=== PATIENT | male | born 1955 | race Caucasian/White ===

== ENCOUNTER 2017-06-30 11:00 | Emergency (ER) | payer BC ==
--- NOTE | 2017-06-30 11:26 | ED ---
General Adult HPI - General Chief complaint: Chest Pain Stated complaint: Irregular Heartbeat Time Seen by Provider: 06/30/17 11:00 Source: patient, family, RN notes reviewed Mode of arrival: ambulatory Limitations: no limitations - History of Present Illness Initial comments: This is a 61-year-old male who presents emergency Department because he went to get a preoperative exam and an EKG showed that he was in A. fib for the first time in his life. Patient states he has no history of A. fib or heart disease patient denies diabetes hypertension or high cholesterol. Patient denies any smoking history. Patient states he's been asymptomatic. Patient denies any chest pain palpitations difficulty breathing or shortness of breath. Patient states he had no idea that he had A. fib. Patient states he has not had any fevers chills or cough recently. Patient denies any abdominal pain patient denies nausea vomiting diarrhea. Patient denies any back pain. Patient denies any headache patient denies numbness weakness. Patient denies any lightheadedness dizziness or near syncopal episode. - Related Data Home Medications Medication Instructions Recorded Confirmed Cyclobenzaprine [Flexeril] 5 - 10 mg PO TID PRN 06/30/17 06/30/17 Garlic 1 tab PO DAILY 06/30/17 06/30/17 HYDROcodone/IBUPROFEN 7.5-200 1 tab PO BID PRN 06/30/17 06/30/17 [Vicoprofen 7.5-200 mg] Hydrocortisone Suppository 25 mg RECTAL DAILY PRN 06/30/17 06/30/17 [Anusol-Hc] L.acidoph,Paracasei, B.lactis 1 cap PO DAILY 06/30/17 06/30/17 [Probiotic] Multivitamins, Thera [Multivitamin 1 tab PO DAILY 06/30/17 06/30/17 (formulary)] [place]-3 Fatty Acids/Fish Oil [Fish 1 cap PO DAILY 06/30/17 06/30/17 Oil 1,000 mg Softgel] Tamsulosin HCl [Flomax] 0.4 mg PO DAILY 06/30/17 06/30/17 hydrOXYzine HCL [Atarax] 10 mg PO TID PRN 06/30/17 06/30/17 Previous Rx's Medication Instructions Recorded Enoxaparin [Lovenox] 80 mg SQ Q12H #12 syringe 06/30/17 Allergies Allergy/AdvReac Type Severity Reaction Status Date / Time No Known Allergies Allergy Verified 06/30/17 11:52 Review of Systems ROS Statement: Those systems with pertinent positive or pertinent negative responses have been documented in the HPI. ROS Other: All systems not noted in ROS Statement are negative. Past Medical History Past Medical History: No Reported History Additional Past Medical History / Comment(s): Arthritis History of Any Multi-Drug Resistant Organisms: None Reported Past Surgical History: Appendectomy Additional Past Surgical History / Comment(s): Bicep Past Psychological History: No Psychological Hx Reported Smoking Status: Never smoker Past Alcohol Use History: None Reported Past Drug Use History: None Reported General Exam - General Exam Comments Initial Comments: GENERAL: Patient is well-developed and well-nourished. Patient is nontoxic and well- hydrated and is in mild distress. ENT: Neck is soft and supple. No significant lymphadenopathy is noted. Oropharynx is clear. Moist mucous membranes. Neck has full range of motion without eliciting any pain. EYES: The sclera were anicteric and conjunctiva were pink and moist. Extraocular movements were intact and pupils were equal round and reactive to light. Eyelids were unremarkable. PULMONARY: Unlabored respirations. Good breath sounds bilaterally. No audible rales rhonchi or wheezing was noted. CARDIOVASCULAR: Patient heart rate is irregular.. ABDOMEN: Soft and nontender with normal bowel sounds. No palpable organomegaly was noted. There is no palpable pulsatile mass. SKIN: Skin is clear with no lesions or rashes and otherwise unremarkable. NEUROLOGIC: Patient is alert and oriented x3. Cranial nerves II through XII are grossly intact. Motor and sensory are also intact. Normal speech, volume and content. Symmetrical smile. MUSCULOSKELETAL: Normal extremities with adequate strength and full range of motion. LYMPHATICS: No significant lymphadenopathy is noted PSYCHIATRIC: Normal psychiatric evaluation. Normal interpersonal interactions appears functionally intact in deals appropriately with others. No signs of depression. No signs of anxiety. No delusions. No hallucinations. Limitations: no limitations Course Vital Signs 06/30/17 06/30/17 11:05 12:19 Temperature 98.7 F Pulse Rate 78 84 Respiratory 16 16 Rate Blood Pressure 125/82 129/83 O2 Sat by Pulse 98 96 Oximetry Medical Decision Making - Medical Decision Making EKG shows atrial fibrillation at 60 bpm QRS is 84 QT interval 412 QTC is 438. Patient's EKG shows no ST segment elevation or depression I spoke with Dr. Eileen Arellano wanted Lovenox given to the patient is sent home on Lovenox. - Lab Data Result diagrams: 06/30/17 11:31 06/30/17 11:31 Lab Results 06/30/17 06/30/17 06/30/17 Range/Units 11:31 11:31 11:31 WBC 6.2 (3.8-10.6) k/uL RBC 5.40 (4.30-5.90) m/uL Hgb 16.6 (13.0-17.5) gm/dL Hct 50.9 (39.0-53.0) % MCV 94.1 (80.0-100.0) fL MCH 30.8 (25.0-35.0) pg MCHC 32.7 (31.0-37.0) g/dL RDW 12.6 (11.5-15.5) % Plt Count 196 (150-450) k/uL Neutrophils % 67 % Lymphocytes % 23 % Monocytes % 6 % Eosinophils % 2 % Basophils % 1 % Neutrophils # 4.1 (1.3-7.7) k/uL Lymphocytes # 1.4 (1.0-4.8) k/uL Monocytes # 0.4 (0-1.0) k/uL Eosinophils # 0.1 (0-0.7) k/uL Basophils # 0.1 (0-0.2) k/uL PT (9.0-12.0) sec INR (<1.2) APTT (22.0-30.0) sec Sodium 142 (137-145) mmol/L Potassium 4.8 (3.5-5.1) mmol/L Chloride 108 H (98-107) mmol/L Carbon Dioxide 24 (22-30) mmol/L Anion Gap 10 mmol/L BUN 15 (9-20) mg/dL Creatinine 1.19 (0.66-1.25) mg/dL Est GFR (MDRD) Af Amer >60 (>60 ml/min/1.73 sqM) Est GFR (MDRD) Non-Af >60 (>60 ml/min/1.73 sqM) Glucose 97 (74-99) mg/dL Calcium 9.7 (8.4-10.2) mg/dL Magnesium 2.1 (1.6-2.3) mg/dL Total Bilirubin 0.8 (0.2-1.3) mg/dL AST 26 (17-59) U/L ALT 33 (21-72) U/L Alkaline Phosphatase 78 (38-126) U/L Total Creatine Kinase 179 H (55-170) U/L CK-MB (CK-2) 2.0 (0.0-2.4) ng/mL CK-MB (CK-2) Rel Index 1.1 Troponin I <0.012 (0.000-0.034) ng/mL Total Protein 6.7 (6.3-8.2) g/dL Albumin 4.2 (3.5-5.0) g/dL 06/30/17 Range/Units 11:31 WBC (3.8-10.6) k/uL RBC (4.30-5.90) m/uL Hgb (13.0-17.5) gm/dL Hct (39.0-53.0) % MCV (80.0-100.0) fL MCH (25.0-35.0) pg MCHC (31.0-37.0) g/dL RDW (11.5-15.5) % Plt Count (150-450) k/uL Neutrophils % % Lymphocytes % % Monocytes % % Eosinophils % % Basophils % % Neutrophils # (1.3-7.7) k/uL Lymphocytes # (1.0-4.8) k/uL Monocytes # (0-1.0) k/uL Eosinophils # (0-0.7) k/uL Basophils # (0-0.2) k/uL PT 10.5 (9.0-12.0) sec INR 1.1 (<1.2) APTT 22.7 (22.0-30.0) sec Sodium (137-145) mmol/L Potassium (3.5-5.1) mmol/L Chloride (98-107) mmol/L Carbon Dioxide (22-30) mmol/L Anion Gap mmol/L BUN (9-20) mg/dL Creatinine (0.66-1.25) mg/dL Est GFR (MDRD) Af Amer (>60 ml/min/1.73 sqM) Est GFR (MDRD) Non-Af (>60 ml/min/1.73 sqM) Glucose (74-99) mg/dL Calcium (8.4-10.2) mg/dL Magnesium (1.6-2.3) mg/dL Total Bilirubin (0.2-1.3) mg/dL AST (17-59) U/L ALT (21-72) U/L Alkaline Phosphatase (38-126) U/L Total Creatine Kinase (55-170) U/L CK-MB (CK-2) (0.0-2.4) ng/mL CK-MB (CK-2) Rel Index Troponin I (0.000-0.034) ng/mL Total Protein (6.3-8.2) g/dL Albumin (3.5-5.0) g/dL Disposition Clinical Impression: New onset a-fib Disposition: HOME SELF-CARE Condition: Good Additional Instructions: Patient's take Lovenox as prescribed. Patient should take the morning dose of Lovenox on and stop after that for the surgery on Monday Prescriptions: Enoxaparin [Lovenox] 80 mg SQ Q12H #12 syringe Referrals: Blas Borges MD [Primary Care Provider] - 1-2 days Time of Disposition: 13:03
[2017-06-30 11:44] LABS: Basophils # (A) 0.1 k/uL (0-0.2); Basophils % (A) 1 %; Eosinophils # (A) 0.1 k/uL (0-0.7); Eosinophils % (A) 2 %; HCT 50.9 % (39.0-53.0); HGB 16.6 gm/dL (13.0-17.5); Lymphocytes # (A) 1.4 k/uL (1.0-4.8); Lymphocytes % (A) 23 %; MCH 30.8 pg (25.0-35.0); MCHC 32.7 g/dL (31.0-37.0); MCV 94.1 fL (80.0-100.0); Mean Platelet Volume 6.9; Monocytes # (A) 0.4 k/uL (0-1.0); Monocytes % (A) 6 %; Neutrophils # (A) 4.1 k/uL (1.3-7.7); Neutrophils % (A) 67 %; Platelet Count 196 k/uL (150-450); RDW 12.6 % (11.5-15.5); WBC 6.2 k/uL (3.8-10.6)
[2017-06-30 11:58] LABS: ALT 33 U/L (21-72); AST 26 U/L (17-59); Albumin 4.2 g/dL (3.5-5.0); Alkaline Phosphatase 78 U/L (38-126); Anion Gap 10 mmol/L; Blood Urea Nitrogen 15 mg/dL (9-20); Calcium 9.7 mg/dL (8.4-10.2); Carbon Dioxide 24 mmol/L (22-30); Chloride 108 mmol/L (98-107); Glucose 97 mg/dL (74-99); Magnesium 2.1 mg/dL (1.6-2.3); Potassium 4.8 mmol/L (3.5-5.1); Sodium 142 mmol/L (137-145); Total Bilirubin 0.8 mg/dL (0.2-1.3); Total Protein 6.7 g/dL (6.3-8.2)
--- NOTE | 2017-06-30 12:00 | XR ---
EXAMINATION TYPE: XR chest 2V DATE OF EXAM: 06/30/2017 COMPARISON: NONE HISTORY: Cardiac arrhythmia and chest pain. TECHNIQUE: Frontal and lateral views of the chest are obtained. FINDINGS: There is no focal air space opacity, pleural effusion, or pneumothorax seen. The cardiac silhouette size is within normal limits. The osseous structures are intact. Minimal multilevel dege nerative changes of the thoracic spine are noted. IMPRESSION: No acute cardiopulmonary process.
[2017-06-30 12:02] LABS: INR 1.1 (<1.2); Partial Thromboplastin Time 22.7 sec (22.0-30.0); Prothrombin Time 10.5 sec (9.0-12.0)
[2017-06-30 12:15] LABS: Creatine Kinase 179 U/L (55-170)
[2017-06-30 12:28] LABS: Troponin I <0.012 ng/mL (0.000-0.034)
[2017-06-30] MEDS ORDERED: ENOXAPARIN 80 MG/0.8 ML SYRINGE SQ STA (13:02)
[2017-06-30 13:47] VITALS: BP 131/78; PULSE 86; RESP 18; TEMP 97.2
== END 2017-06-30 13:47 | disposition home or self-care (01) ==
LOC: EC 11:00
DX: I48.91 Unspecified atrial fibrillation (principal); Z79.899 Other long term (current) drug therapy
CPT/HCPCS: 36415; 93005; 80053; 82550; 82553; 83735; 84484; 85025; 85610; 85730; 71046; 99285; 96372; J1650

== ENCOUNTER → 2017-09-30 | Outpatient (CLI) | payer BC ==
[2017-09-30 10:49] LABS: HCT 42.8 % (39.0-53.0); HGB 14.5 gm/dL (13.0-17.5); MCH 31.2 pg (25.0-35.0); MCHC 33.8 g/dL (31.0-37.0); MCV 92.3 fL (80.0-100.0); Mean Platelet Volume 7.6; Platelet Count 218 k/uL (150-450); RBC 4.64 m/uL (4.30-5.90); RDW 13.1 % (11.5-15.5); WBC 5.5 k/uL (3.8-10.6)
[2017-09-30 10:58] LABS: Anion Gap 12 mmol/L; Blood Urea Nitrogen 20 mg/dL (9-20); Calcium 9.5 mg/dL (8.4-10.2); Carbon Dioxide 24 mmol/L (22-30); Chloride 107 mmol/L (98-107); Glucose 142 mg/dL (74-99); Potassium 4.2 mmol/L (3.5-5.1); Sodium 143 mmol/L (137-145)
== END | disposition home or self-care (01) ==
LOC: LABWHC1 10:02
PROVIDERS: ATTEND Internal Medicine Clinical Cardiac Electrophysiology
DX: I48.1 Persistent atrial fibrillation (principal)
CPT/HCPCS: 36415; 80048; 85027

== ENCOUNTER 2017-10-12 09:21 | Day surgery (SDC) | payer BC ==
[2017-10-09 14:48] VITALS: BMI 23.0
[~2017-10-12 09:21] MED LIST: LACTATED RINGERS 1,000 ML IV SCH; LIDOCAINE 1% 20 ML VIAL (10MG/ML) FOR IV START INTRADERMA PRN; SODIUM CHLORIDE 0.9% 1,000 ML IV SCH
[2017-10-12] MEDS ORDERED: PROPOFOL 10 MG/ML 20 ML VIAL IV ONE (10:30)
--- NOTE | 2017-10-12 10:42 | P.PCN ---
Preoperative Diagnosis: Diagnosis Symptomatic atrial fibrillation despite adequate rate control Procedure Successful electrical cardioversion with a 360 J biphasic shock Few PACs followed by sinus rhythm Plan Continue anticoagulation with ELIQUIS No antiarrhythmic drugs for now reevaluate symptoms of fatigue and tiredness while in sinus rhythm, If he shows a distinct improvement in his energy level and excess capacity while in sinus rhythm then antiarrhythmic therapies will be pursued for management of atrial fibrillation He also needs reassessment of LV function while in sinus rhythm to see if there is any improvement in LV function Anesthesia: MAC Disposition: same day
[2017-10-12 10:52] VITALS: TEMP 97.4
--- NOTE | 2017-10-12 10:54 | P.PN ---
Progress Note - Text Follow-up note Within 5 minutes post cardioversion. Patient had a recurrence of atrial fibrillation Plan Pulmonary vein isolation Reassessment of LV function Avoid class I antiarrhythmic drugs Avoid amiodarone CMP, TSH, lipid panel with reflex LDL
[2017-10-12 12:10] VITALS: BP 121/72; PULSE 72; RESP 18
== END 2017-10-12 12:12 | disposition home or self-care (01) ==
LOC: CATHEP 09:21
PROVIDERS: ATTEND Internal Medicine Clinical Cardiac Electrophysiology
DX: I48.1 Persistent atrial fibrillation (principal); E78.5 Hyperlipidemia, unspecified; N40.0 Benign prostatic hyperplasia without lower urinary tract symptoms; M19.90 Unspecified osteoarthritis, unspecified site; I45.10 Unspecified right bundle-branch block; Z87.891 Personal history of nicotine dependence; Z79.01 Long term (current) use of anticoagulants; Z79.899 Other long term (current) drug therapy
CPT/HCPCS: 92960; J2704

== ENCOUNTER 2017-12-21 11:51 | Day surgery (SDC) | payer BC ==
[2017-12-15 16:18] VITALS: BMI 24.4
[2017-12-21 12:47] LABS: Basophils % (A) 1 %; Eosinophils # (A) 0.1 k/uL (0-0.7); Eosinophils % (A) 3 %; HCT 46.6 % (39.0-53.0); HGB 15.6 gm/dL (13.0-17.5); Lymphocytes # (A) 1.1 k/uL (1.0-4.8); Lymphocytes % (A) 22 %; MCH 31.3 pg (25.0-35.0); MCHC 33.4 g/dL (31.0-37.0); MCV 93.7 fL (80.0-100.0); Mean Platelet Volume 6.7; Monocytes # (A) 0.3 k/uL (0-1.0); Monocytes % (A) 6 %; Neutrophils # (A) 3.5 k/uL (1.3-7.7); Neutrophils % (A) 67 %; Platelet Count 219 k/uL (150-450); RBC 4.98 m/uL (4.30-5.90); WBC 5.3 k/uL (3.8-10.6)
[2017-12-21 13:06] LABS: Anion Gap 6 mmol/L; Blood Urea Nitrogen 18 mg/dL (9-20); Calcium 9.4 mg/dL (8.4-10.2); Carbon Dioxide 23 mmol/L (22-30); Chloride 111 mmol/L (98-107); Glucose 101 mg/dL (74-99); Potassium 4.3 mmol/L (3.5-5.1); Sodium 140 mmol/L (137-145)
[2017-12-21] MEDS ORDERED: ePHEDrine SULFATE/0.9% NACL/PF 50 MG/5 ML SYRINGE IV ONE (13:22)
[2017-12-21] MEDS ORDERED: PROTAMINE SULFATE 10 MG/ML 5 ML VIAL IV ONE (13:22)
[2017-12-21] MEDS ORDERED: PROPOFOL 10 MG/ML 20 ML VIAL IV ONE (13:22)
[2017-12-21] MEDS ORDERED: HEPARIN SODIUM,PORCINE 5,000 UNIT/ML 1 ML VIAL ONE (13:22)
[2017-12-21] MEDS ORDERED: LIDOCAINE 1% INJ 10MG/ML (20 ML MDV) ONE ×2 (13:22→13:35)
[2017-12-21] MEDS ORDERED: MIDAZOLAM 2 MG/2 ML VIAL ONE (13:22)
[2017-12-21] MEDS ORDERED: SUCCINYLCHOLINE CHLORIDE 100 MG/5 ML SYR IV ONE (13:22)
[2017-12-21] MEDS ORDERED: PHENYLEPHRINE-0.9% NACL SYG 1 MG/10 ML SYRINGE ONE (13:22)
[2017-12-21] MEDS ORDERED: fentaNYL (PF) 50 MCG/ML 2 ML AMP ONE (13:22)
[2017-12-21] MEDS ORDERED: IV FLUID CONTINUATION 1,000 ML IV ONE (13:38)
[2017-12-21] MEDS ORDERED: HEPARIN SODIUM 1,000 UN/ML (10ML VL) ONE (13:41)
[2017-12-21] MEDS ORDERED: LIDOCAINE 1% INJ 10MG/ML (20 ML MDV) SQ ONE (14:00)
[2017-12-21] MEDS ORDERED: HEPARIN SOD,PORK IN 0.45% NACL 25,000 UNIT in 0.45% NACL 1 500ML.BAG IV ONE ×2 (14:21)
[2017-12-21] MEDS ORDERED: SODIUM CHLORIDE 0.9% 1,000 ML IV ONE (14:58)
[2017-12-21] MEDS ORDERED: IOPAMIDOL-370 100ML BTL INJ ONE (16:21)
[2017-12-21] MEDS ORDERED: ACETAMINOPHEN TAB 325 MG TAB PO PRN (16:46)
[2017-12-21] MEDS ORDERED: ACETAMINOPHEN IV (For NPO) 1,000 MG in EMPTY BAG 1 BAG IVPB ONE (16:46)
--- NOTE | 2017-12-21 16:59 | P.PCN ---
Preoperative Diagnosis: Diagnosis Atrial fibrillation, symptomatic, Atrial fibrillation related mild cardio myopathy Procedures performed (PVI - CRYO Ablation) Invasive hemodynamic monitoring while general anesthesia, right femoral arterial line for monitoring and sampling Comprehensive diagnostic EP study with attempted arrhythmia induction CS pacing and recording Drug infusion Catheter the mapping of the tachycardia (NOT 3D mapping) Intracardiac echocardiography Pulmonary vein isolation with transseptal and comprehensive EPS, 42231 Electrical cardioversion Procedure details Patient was brought to the EP lab in a fasting state. Written informed consent was obtained prior to the procedure. Procedure performed under general anesthesia After initial muscle relaxant use, muscle relaxants were not given thereafter in order to assess phrenic nerve during procedure Patient prepped and draped as per protocol Full cryo-set up with standard preparation of the cryoablation tools done Femoral Venous access obtained on the right and left groins Sheaths placed Diagnostic catheters for the high right atrium, phrenic nerve stimulation and pacing, His bundle, RV and coronary sinus placed Intracardiac echo catheter placed Long sheath placed in the right atrium Left and right transseptal catheterization performed under intracardiac echo guidance Intravenous heparin with aCT above 300 Later, catheter positioning and balloon positioning under intracardiac echo Baseline measurements Patient was in atrial fibrillation. Study Post cardioversion AR interval 160 ms QRS 84 ms, QT 393 ms AH 44 ms HV 33 ms Comprehensive diagnostic EP study with drug infusion Atrial pacing performed from the high right atrium and the coronary sinus RV pacing Sinus recovery times at 600 540 ms were 937, 96 and 1004 ms. AV node Wenckebach block for 60 ms Transseptal catheterization performed RA pressure 13/5/10 LA pressure 19/80/12 Transseptal catheterization performed with standard sheath. The cryoablation sheath was then placed with an over the wire exchange without any acute complications. All 4 pulmonary veins were isolated in the following sequence: Left superior followed by left inferior followed by right superior followed by right inferior The cryo-ablation balloon was placed at the os of each vein 1.5 mL of IV dye was injected to confirm an occluded vein Goal during cryoablation was to achieve complete occlusion of the pulmonary vein , achieve -30C at 30 seconds and achieve -40C at 60 seconds and a time to affect of less than 60-90 seconds, . If not the balloon was repositioned to obtain this result After completion of Cryoblation with durations from 180-240 seconds, entrance block was confirmed with the Attain circular catheter in a roving fashion around the antrum of the pulmonary veins Phrenic nerve pacing was performed from the SVC, right innominate vein area and diaphragm voltage was monitored. Diaphragmatic contractions were also monitored manually for strength of contraction. Parameter goals for each cryo freeze -30C by 30 seconds -40C by 60 seconds Mediated between minus 40-55 Thaw time greater than 10 seconds Balloon visualized by intracardiac echo to ensure that the proximal one third was within the left atrium/antrum The esophagus was intubated. Esophageal Temperature monitoring with a CIRCA catheter formed. Esophageal deflection for hypothermia of the esophagus below 32C Left superior pulmonary vein 2 Cryoblation's 3 minutes each complete isolation Left inferior pulmonary vein 2 Cryoblation's 3 minutes followed by 2 minutes, complete isolation Right superior pulmonary vein, during phrenic nerve pacing 2 Cryoblation's 3 minutes each, complete isolation Right inferior pulmonary vein, during phrenic nerve pacing 2 Cryoblations 3 minutes each complete isolation At the end of the procedure the Achieve catheter was once again used to check for entrance block Phrenic nerve stimulation was performed to confirm diaphragmatic stimulation the end of the procedure Cine fluoroscopy was performed at the very end of the procedure to confirm movement of both diaphragms with inspiration and expiration At the end of the procedure the patient was extubated Heparin was reversed Venous sheaths were removed and hemostasis assured Result Successful pulmonary vein isolation of all veins using cryo-ablation Complete entrance block in all 4 veins confirmed No evidence for phrenic nerve injury Electrical cardioversion 360 J shock sinus rhythm Esophageal deflection performed Anesthesia: GETA Condition: stable
[2017-12-21] MEDS ORDERED: ALPRAZolam 0.25 MG TAB PO PRN (19:50)
[2017-12-21] MEDS: HYDROcodone/APAP 5-325MG 1 EACH TAB PO PRN (19:55)
[2017-12-21] MEDS: FLECAINIDE 50 MG TAB PO SCH (19:56)
[2017-12-21] MEDS: APIXABAN 5 MG TAB PO SCH (19:56)
[2017-12-21] MEDS: SODIUM CHLORIDE 0.9% 1,000 ML IV SCH (23:14)
[2017-12-22] VITALS: RESP 18
[2017-12-22] MEDS: HYDROcodone/APAP 5-325MG 1 EACH TAB PO PRN ×3 (03:19→10:41)
[2017-12-22] MEDS: SODIUM CHLORIDE 0.9% 1,000 ML IV SCH (05:58)
--- NOTE | 2017-12-22 08:01 | P.DS ---
Providers Attending physician: Stanton Galvin Primary care physician: [facility] [place] Course: Patient is doing well. No dizziness lightheadedness he has mild discomfort in the chest sitting comfortably in bed eating breakfast heart sounds are normal normal S1 normal S2 no rub no gallop Breath sounds are clear no rhonchi no crackles abdomen is soft nontender Extended is warm no edema groin is healed well no hematoma no tenderness Afebrile 98.3F pulse rate in the 80s blood pressure 123/74 mmHg Impression Persistent symptomatic atrial fibrillation with history of atrial fibrillation related cardio myopathy Status post cryoablation of the pulmonary veins Plan Continue anticoagulation start flecainide 50 g twice daily. Intracardiac echo revealed fairly preserved LV systolic function now continue metoprolol succinate 25 mg twice daily follow-up within 1-2 weeks in the office Complete abstinence from alcohol discussed Patient Condition at Discharge: Stable Plan - Discharge Summary Discharge Rx Participant: No New Discharge Prescriptions: New Metoprolol Succinate [Toprol XL] 25 mg PO DAILY #90 tab No Action hydrOXYzine HCL [Atarax] 10 mg PO TID PRN PRN Reason: Itching Cyclobenzaprine [Flexeril] 5 - 10 mg PO TID PRN PRN Reason: Pain Apixaban [Eliquis] 5 mg PO BID HYDROcodone/APAP 7.5-325MG [[place] 7.5-325] 1 tab PO DAILY PRN PRN Reason: Pain Multivit-Min/FA/Lycopen/Lutein [Centrum Silver Men Tablet] 1 each PO DAILY Garlic 1 each PO DAILY Discharge Medication List Cyclobenzaprine [Flexeril] 5 - 10 mg PO TID PRN 06/30/17 [History] hydrOXYzine HCL [Atarax] 10 mg PO TID PRN 06/30/17 [History] Apixaban [Eliquis] 5 mg PO BID 10/12/17 [History] HYDROcodone/APAP 7.5-325MG [[place] 7.5-325] 1 tab PO DAILY PRN 12/15/17 [History] Garlic 1 each PO DAILY 12/18/17 [History] Multivit-Min/FA/Lycopen/Lutein [Centrum Silver Men Tablet] 1 each PO DAILY 12/18 [History] Metoprolol Succinate [Toprol XL] 25 mg PO DAILY #90 tab 07/27/18 [Rx] Follow up Appointment(s)/Referral(s): Stanton Galvin MD [STAFF PHYSICIAN] - 2 Weeks (Follow Dr. Duarte in 1-2 week) Activity/Diet/Wound Care/Special Instructions: Post EP study - Ablation instructions 1. Keep access sites dry for 2 days. 2. No heavy lifting or straining for 2 days. 3. Avoid bending the hips repeatedly for 2 days. 4. You may go up and down stairs slowly Call if the following is noted 1. Bleeding, increasing swelling or pain at the access sites. 2. Increasing chest discomfort, especially upon taking a deep breath. 3. Increasing shortness of breath, at rest or with exertion. 4. Undue cough / phlegm 5. Difficulty or pain while swallowing. 6. Pain or change in color in the extremities. 7. Fever, chills, rigors. 8. Increasing headache or neurologic symptoms. 9. Dizziness, fainting, palpitations Continue ELIQUIS Start flecainide 50 mg twice daily Discharge Disposition: HOME SELF-CARE
[2017-12-22] MEDS: APIXABAN 5 MG TAB PO SCH (09:59)
[2017-12-22] MEDS: FLECAINIDE 50 MG TAB PO SCH (09:59)
[2017-12-22 12:07] VITALS: BP 107/71; PULSE 89; TEMP 98.8
== END 2017-12-22 16:37 | disposition home or self-care (01) ==
LOC: CATHEP 11:51 → 3OBS 16:13 → CATHEP 12-22 16:37
PROVIDERS: ATTEND Internal Medicine Clinical Cardiac Electrophysiology
DX: I48.1 Persistent atrial fibrillation (principal); I42.0 Dilated cardiomyopathy; Z79.01 Long term (current) use of anticoagulants; Z79.891 Long term (current) use of opiate analgesic; Z79.899 Other long term (current) drug therapy; M19.012 Primary osteoarthritis, left shoulder; E78.5 Hyperlipidemia, unspecified
CPT/HCPCS: 85347; 93662; 93609; 93656; 80048; 85025; C1769 ×5; C1894 ×3; C1730 ×3; C1759; C1893; C1733; C1766; J2250; J2720; J1644 ×2; J2001; J3010; J2370; J0330; J2704; Q9967; 92960

== ENCOUNTER 2018-02-09 14:05 | Inpatient (IN) | payer BC ==
[2018-02-09 14:34] VITALS: BMI 25.1
[2018-02-09 15:31] LABS: Anion Gap 7 mmol/L; Blood Urea Nitrogen 22 mg/dL (9-20); Calcium 9.1 mg/dL (8.4-10.2); Carbon Dioxide 25 mmol/L (22-30); Chloride 107 mmol/L (98-107); Glucose 90 mg/dL (74-99); Magnesium 2.2 mg/dL (1.6-2.3); Potassium 4.4 mmol/L (3.5-5.1); Sodium 139 mmol/L (137-145)
[2018-02-09] MEDS ORDERED: CYCLOBENZAPRINE 5 MG TAB PO PRN (16:02)
[2018-02-09] MEDS ORDERED: hydrOXYzine HCL 10 MG TAB PO PRN (16:03)
[2018-02-09] MEDS ORDERED: MAGNESIUM SULFATE-D5W PMX 1 GM in DEXTROSE/WATER 1 100ML.BAG IVPB PRN (17:30)
[2018-02-09] MEDS ORDERED: DOFETILIDE 500 MCG CAP PO ONE (18:00)
[2018-02-09 20:13] LABS: Basophils % (A) 1 %; Eosinophils # (A) 0.1 k/uL (0-0.7); Eosinophils % (A) 3 %; HCT 42.9 % (39.0-53.0); HGB 13.9 gm/dL (13.0-17.5); Lymphocytes # (A) 1.4 k/uL (1.0-4.8); Lymphocytes % (A) 30 %; MCH 31.1 pg (25.0-35.0); MCHC 32.4 g/dL (31.0-37.0); MCV 95.8 fL (80.0-100.0); Mean Platelet Volume 7.8; Monocytes # (A) 0.3 k/uL (0-1.0); Monocytes % (A) 8 %; Neutrophils # (A) 2.6 k/uL (1.3-7.7); Neutrophils % (A) 57 %; Platelet Count 202 k/uL (150-450); RBC 4.48 m/uL (4.30-5.90); RDW 12.5 % (11.5-15.5); WBC 4.6 k/uL (3.8-10.6)
[2018-02-09] MEDS: APIXABAN 5 MG TAB PO SCH (21:18)
[2018-02-10] MEDS ORDERED: DOFETILIDE 500 MCG CAP PO ONE (06:00)
[2018-02-10 06:25] LABS: Anion Gap 5 mmol/L; Blood Urea Nitrogen 18 mg/dL (9-20); Calcium 9.3 mg/dL (8.4-10.2); Carbon Dioxide 26 mmol/L (22-30); Chloride 107 mmol/L (98-107); Glucose 96 mg/dL (74-99); Magnesium 2.3 mg/dL (1.6-2.3); Potassium 4.8 mmol/L (3.5-5.1); Sodium 138 mmol/L (137-145)
[2018-02-10] MEDS: MAGNESIUM OXIDE 400 MG TAB PO SCH (08:29)
[2018-02-10] MEDS: APIXABAN 5 MG TAB PO SCH ×2 (08:29→20:53)
[2018-02-10] MEDS: HYDROcodone/APAP 7.5-325MG 1 EACH TAB PO PRN (08:34)
[2018-02-10] MEDS ORDERED: SPIRONOLACTONE 25 MG TAB PO SCH (09:00)
--- NOTE | 2018-02-10 11:37 | P.HPCAR ---
History of Present Illness This is Dr. Galvin dictating this admission note on this patient The patient was interviewed and examined by me IMPRESSION / ASSESSMENT: Symptomatic atrial fibrillation, persistent PLAN: Dofetilide 500 g twice daily Observation on telemetry and dofetilide protocol Continue anticoagulation Possible electrical cardioversion if he remains in atrial fibrillation after 5 doses of dofetilide Continue ELIQUIS Start spironolactone 20 femoral grams by mouth daily Start oral magnesium HPI Patient has persistent symptomatically atrial fibrillation feels tired and fatigued. Undergone pulmonary vein isolation. Back in atrial fibrillation within a few weeks of successful PVI No chest discomfort ROS: No fever chills or rigors, no cough, phlegm or expectoration, no nausea, vomiting or diarrhea, no hematuria, dysuria, no musculoskeletal complaints, no strokes or seizures, no skin lesions. EXAMINATION Irregular rhythm Heart sounds are normal no murmurs or gallops no rub Breath sounds are clear no rhonchi no crackles Abdomen is soft nontender Next 70s warm no edema No JVD Afebrile 97.3F, blood pressure 123/74 mm of Hg pulse rate in the 70s and 80s REVIEW OF LABS, ECG Sodium 139, potassium 4.4, BUN 22, creatinine 1.0, magnesium 2.2, TSH 1.2 Hemoglobin 13.9 Twelve-lead ECG shows atrial fibrillation with a controlled ventricular response Physical Exam Vitals: Vital Signs Temp Pulse Resp BP Pulse Ox 02/10/18 08:00 98.2 F 78 14 123/74 95 02/10/18 03:30 97.3 F L 76 18 98/64 96 02/09/18 23:00 98.0 F 76 18 114/80 94 L 02/09/18 19:50 98.1 F 84 16 111/76 94 L 02/09/18 16:23 98.2 F 94 16 124/82 96 Intake and Output 02/09/18 02/10/18 02/10/18 22:59 06:59 14:59 Intake Total 222 680 Balance 222 680 Intake: Oral 222 680 Other: Weight 82.1 kg Past Medical History Past Medical History: No Reported History, Atrial Fibrillation, Atrial Flutter Additional Past Medical History / Comment(s): . History of Any Multi-Drug Resistant Organisms: None Reported Past Surgical History: Appendectomy Additional Past Surgical History / Comment(s): Cardioversion,Bicep repair Past Anesthesia/Blood Transfusion Reactions: No Reported Reaction Past Psychological History: No Psychological Hx Reported Smoking Status: Former smoker Past Alcohol Use History: None Reported Past Drug Use History: None Reported - Past Family History Mother Family Medical History: No Reported History Father Family Medical History: Coronary Artery Disease (CAD) Physical Examination Vital Signs Temp Pulse Resp BP Pulse Ox 02/10/18 08:00 98.2 F 78 14 123/74 95 02/10/18 03:30 97.3 F L 76 18 98/64 96 02/09/18 23:00 98.0 F 76 18 114/80 94 L 02/09/18 19:50 98.1 F 84 16 111/76 94 L 02/09/18 16:23 98.2 F 94 16 124/82 96 Intake and Output 02/09/18 02/10/18 02/10/18 22:59 06:59 14:59 Intake Total 222 680 Balance 222 680 Intake: Oral 222 680 Other: Weight 82.1 kg Results 02/09/18 14:54 02/10/18 05:45 CBC 02/09/18 Range/Units 14:54 WBC 4.6 (3.8-10.6) k/uL RBC 4.48 (4.30-5.90) m/uL Hgb 13.9 (13.0-17.5) gm/dL Hct 42.9 (39.0-53.0) % Plt Count 202 (150-450) k/uL Comprehensive Metabolic Panel 02/09/18 02/10/18 Range/Units 14:54 05:45 Sodium 139 138 (137-145) mmol/L Potassium 4.4 4.8 (3.5-5.1) mmol/L Chloride 107 107 (98-107) mmol/L Carbon Dioxide 25 26 (22-30) mmol/L BUN 22 H 18 (9-20) mg/dL Creatinine 1.00 1.00 (0.66-1.25) mg/dL Glucose 90 96 (74-99) mg/dL Calcium 9.1 9.3 (8.4-10.2) mg/dL Current Medications Generic Name Dose Route Start Last Admin Trade Name Freq PRN Reason Stop Dose Admin Hydrocodone Bitart/Acetaminophen 1 each 02/09/18 16:01 02/10/18 08:34 [place] 7.5-325 PO 1 each Q8H PRN Administration Pain Apixaban 5 mg 02/09/18 21:00 02/10/18 08:29 Eliquis PO 5 mg BID MIRYAM Administration Cyclobenzaprine HCl 5 mg 02/09/18 16:02 Flexeril PO TID PRN Muscle Spasm Magnesium Sulfate/Dextrose 1 100 mls @ 400 mls/hr 02/09/18 17:30 gm/ IV Solution IVPB 03/11/18 17:31 Q15M PRN PER LABEL COMMENTS Magnesium Oxide 100 mg 02/10/18 09:00 02/10/18 08:29 Mag-Ox PO 100 mg DAILY MIRYAM Administration Spironolactone 25 mg 02/10/18 09:00 02/10/18 08:29 Aldactone PO 25 mg DAILY MIRYAM Administration Intake and Output 02/09/18 02/10/18 02/10/18 22:59 06:59 14:59 Intake Total 222 680 Balance 222 680 Intake: Oral 222 680 Other: Weight 82.1 kg 02/09/18 14:54 02/10/18 05:45
--- NOTE | 2018-02-10 11:39 | P.PN ---
Progress Note - Text After the second dose of dofetilide, patient converted to sinus rhythm. His baseline QT interval was normal and was around 400 ms In sinus rhythm his absolute QT interval is less than 440 ms Result Successful chemical cardioversion on dofetilide 500 g twice daily
[2018-02-10] MEDS: DOFETILIDE 500 MCG CAP PO SCH (18:06)
[2018-02-11] MEDS: DOFETILIDE 500 MCG CAP PO SCH ×2 (06:05→17:54)
[2018-02-11 06:59] LABS: Anion Gap 6 mmol/L; Blood Urea Nitrogen 23 mg/dL (9-20); Calcium 9.6 mg/dL (8.4-10.2); Carbon Dioxide 28 mmol/L (22-30); Chloride 108 mmol/L (98-107); Glucose 96 mg/dL (74-99); Magnesium 2.4 mg/dL (1.6-2.3); Potassium 5.2 mmol/L (3.5-5.1); Sodium 142 mmol/L (137-145)
[2018-02-11] MEDS: SPIRONOLACTONE 25 MG TAB PO SCH (08:41)
[2018-02-11] MEDS: APIXABAN 5 MG TAB PO SCH ×2 (08:41→21:08)
[2018-02-11] MEDS: HYDROcodone/APAP 7.5-325MG 1 EACH TAB PO PRN (08:46)
--- NOTE | 2018-02-11 09:50 | P.PN ---
Subjective Mr. Penny is seen and examined sitting up comfortably in bed in no acute distress. He denies symptoms of chest pain, shortness of breath, palpitations or dizziness. EKG obtained this morning reveals a QT interval 440 ms. He continues to maintain sinus mechanism. Blood pressure 111/77 heart rate 74 afebrile maintaining oxygen saturation on room air. Laboratory data reviewed, potassium 5.2, creatinine 0.9, magnesium 2.4. GENERAL: Well-appearing, well-nourished and in no acute distress. NECK: Supple without JVD or thyromegaly. LUNGS: Breath sounds clear to auscultation bilaterally. Respiration equal and unlabored. No wheezes, rales or rhonchi. HEART: Regular rate and rhythm without murmurs, rubs or gallops. S1 and S2 heard. EXTREMITIES: Normal range of motion, no edema. No clubbing or cyanosis. Peripheral pulses intact. ASSESSMENT Persistent symptomatic atrial fibrillation status post successful cardioversion with tikosyn Hyperkalemia PLAN Decrease aldactone to 12.5 PO daily. Discontinue magnesium supplementation. Continue tikosyn 500 mg BID. Advised him to increase PO intake of water for possible dehydration. Repeat EKG tonight 3 hours after administration of tikosyn and call Dr. Kamar thorpe per tikosyn protocol. BMP and magnesium level in am. Further recommendations to follow. Nurse Practitioner note has been reviewed, I agree with a documented findings and plan of care. Patient was seen and examined. Objective - Vital Signs Vital signs: Vital Signs Temp 96.8 F L 02/11/18 08:00 Pulse 74 02/11/18 08:00 Resp 16 02/11/18 08:00 BP 111/77 02/11/18 08:00 Pulse Ox 94 L 02/11/18 08:00 Intake & Output 02/10/18 02/11/18 02/11/18 18:59 06:59 18:59 Intake Total 1360 200 Balance 1360 200 Weight 82.3 kg Intake: Oral 1360 200 Other: # Voids 1 - Labs CBC & Chem 7: 02/09/18 14:54 02/11/18 06:24 Labs: Abnormal Lab Results - Last 24 Hours (Table) 02/11/18 Range/Units 06:24 Potassium 5.2 H (3.5-5.1) mmol/L Chloride 108 H (98-107) mmol/L BUN 23 H (9-20) mg/dL Magnesium 2.4 H (1.6-2.3) mg/dL
[2018-02-11] MEDS: MAGNESIUM OXIDE 400 MG TAB PO SCH (10:58)
[2018-02-11] MEDS ORDERED: ACETAMINOPHEN TAB 325 MG TAB PO PRN (18:14)
[2018-02-12] MEDS: DOFETILIDE 500 MCG CAP PO SCH ×2 (06:10→17:38)
[2018-02-12] MEDS: SPIRONOLACTONE 25 MG TAB PO SCH (08:37)
[2018-02-12] MEDS: APIXABAN 5 MG TAB PO SCH ×2 (08:37→21:32)
[2018-02-12] MEDS: HYDROcodone/APAP 7.5-325MG 1 EACH TAB PO PRN (08:40)
[2018-02-12] MEDS: SODIUM CHLORIDE 0.9% 1,000 ML IV SCH (09:18)
[2018-02-12 10:05] LABS: Anion Gap 7 mmol/L; Blood Urea Nitrogen 18 mg/dL (9-20); Calcium 9.3 mg/dL (8.4-10.2); Carbon Dioxide 26 mmol/L (22-30); Chloride 107 mmol/L (98-107); Glucose 95 mg/dL (74-99); Magnesium 2.3 mg/dL (1.6-2.3); Potassium 4.9 mmol/L (3.5-5.1); Sodium 140 mmol/L (137-145)
[2018-02-13 05:59] LABS: Anion Gap 5 mmol/L; Blood Urea Nitrogen 24 mg/dL (9-20); Calcium 9.6 mg/dL (8.4-10.2); Carbon Dioxide 27 mmol/L (22-30); Chloride 107 mmol/L (98-107); Glucose 95 mg/dL (74-99); Magnesium 2.2 mg/dL (1.6-2.3); Potassium 4.5 mmol/L (3.5-5.1); Sodium 139 mmol/L (137-145)
[2018-02-13] MEDS: SPIRONOLACTONE 25 MG TAB PO SCH (06:02)
[2018-02-13] MEDS: APIXABAN 5 MG TAB PO SCH ×2 (06:02→20:12)
[2018-02-13] MEDS: DOFETILIDE 500 MCG CAP PO SCH ×2 (06:02→18:51)
[2018-02-13] MEDS ORDERED: PROPOFOL 10 MG/ML 20 ML VIAL IV ONE (07:29)
[2018-02-13] MEDS ORDERED: fentaNYL (PF) 50 MCG/ML 2 ML AMP ONE (07:29)
[2018-02-13] MEDS ORDERED: NEOSTIGMINE 1 MG/ML 10 ML VIAL ONE (07:29)
[2018-02-13] MEDS ORDERED: SUCCINYLCHOLINE CHLORIDE 100 MG/5 ML SYR IV ONE (07:29)
[2018-02-13] MEDS ORDERED: PHENYLEPHRINE-0.9% NACL SYG 1 MG/10 ML SYRINGE ONE (07:29)
[2018-02-13] MEDS ORDERED: ePHEDrine SULFATE/0.9% NACL/PF 50 MG/5 ML SYRINGE IV ONE (07:29)
[2018-02-13] MEDS ORDERED: IV FLUID CONTINUATION 1,000 ML IV ONE (07:29)
[2018-02-13] MEDS ORDERED: MIDAZOLAM 2 MG/2 ML VIAL ONE (07:29)
[2018-02-13] MEDS ORDERED: GLYCOPYRROLATE 0.2 MG/ML 2 ML VIAL ONE (07:29)
[2018-02-13] MEDS ORDERED: ROCURONIUM BROMIDE 10 MG/ML 10 ML VIAL IV ONE (07:29)
[2018-02-13] MEDS ORDERED: LIDOCAINE 2% INJ 20 MG/ML SQ ONE ×2 (08:18→08:20)
[2018-02-13] MEDS ORDERED: ACETAMINOPHEN TAB 325 MG TAB PO PRN (09:37)
[2018-02-13] MEDS ORDERED: HEPARIN SODIUM (1,000 UNIT/ML) 1,000 UNIT in SODIUM CHLORIDE 0.9% 1,000 ML IRRIGATION ONE (09:39)
--- NOTE | 2018-02-13 10:16 | PCN ---
PROCEDURE NOTE Mr. Louie is a 62-year-old male patient who was brought in for management of atrial fibrillation. He was started on dofetilide 500 mcg twice daily, converted to sinus rhythm after the second dose. However, after the fifth dose, he went into atrial flutter, typical. Today he was brought in for an atrial flutter ablation, drug refractory to in a different light. He is on anticoagulation. His QT interval was normal. Next, patient brought to the EP lab in a fasting semi-sedated state. Written informed consent was obtained prior to the procedure. Both groins are prepped and draped as per protocol. Two venous sheaths in the right femoral vein and one venous sheath in the left femoral vein and diagnostic catheters mapping ablation catheter were placed. The coronary sinus was mapped. Intracardiac echo revealed normal LV size and systolic function. He was in atrial tachycardia with concentric activation, cycle length 230 milliseconds, QRS 95 milliseconds QT 433 milliseconds. Later in sinus rhythm was AH interval was 65 milliseconds, HV interval 35 milliseconds. In sinus rhythm, cycle sinus cycle length was 750 milliseconds. The OK interval 135 milliseconds. Sinus node recovery time was 6 minutes at a pace cycle length of 600 milliseconds was 1136 milliseconds. Corresponding corrected sinus node recovery time was normal. AV node Wenckebach block 550 milliseconds, VA Wenckebach block 390 milliseconds. Entrainment mapping was performed. The patient was in tachycardia and the post pacing interval was 256 milliseconds and tachycardia was entrained from the cava tricuspid isthmus on the right side. RF ablation in the area resulted in termination of the tachycardia. Following that, a complete line of block was made. An RF ablation was performed. Good contact force and good power was used. A complete anatomic line of block was made. A split potentials of 95 milliseconds were noted differential pacing revealed bidirectional block. Patient tolerated the procedure well without any acute complications. Burst stimulation from the coronary sinus os once he was in sinus rhythm, did not induce atrial flutter nor did it induce any atrial fibrillation. RESULTS: Successful mapping and ablation for atypical atrial flutter, which is drug refractory. PLAN: Continue dofetilide. Continue apixaban and continue Slow-Mag and low-dose spironolactone. Likely discharge tomorrow and follow up in the office. MMODL / IJN: [id number] /
[2018-02-13] MEDS: ACETAMINOPHEN IV (For NPO) 1,000 MG in EMPTY BAG 1 BAG IVPB ONE ×2 (10:42→10:57)
[2018-02-13] MEDS ORDERED: HYDROmorphone 1 MG/ML 1 ML SYRINGE IVP ONE (10:59)
[2018-02-13] MEDS: SODIUM CHLORIDE 0.9% 1,000 ML IV SCH (12:19)
[2018-02-13] MEDS: HYDROcodone/APAP 5-325MG 1 EACH TAB PO PRN ×2 (12:52→20:12)
[2018-02-14] MEDS: HYDROcodone/APAP 5-325MG 1 EACH TAB PO PRN ×2 (01:24→06:10)
[2018-02-14] MEDS: DOFETILIDE 500 MCG CAP PO SCH ×2 (06:00→17:59)
[2018-02-14 07:43] LABS: Anion Gap 4 mmol/L; Blood Urea Nitrogen 21 mg/dL (9-20); Calcium 9.3 mg/dL (8.4-10.2); Carbon Dioxide 28 mmol/L (22-30); Chloride 107 mmol/L (98-107); Glucose 95 mg/dL (74-99); Magnesium 2.1 mg/dL (1.6-2.3); Potassium 4.7 mmol/L (3.5-5.1); Sodium 139 mmol/L (137-145)
[2018-02-14] MEDS: SPIRONOLACTONE 25 MG TAB PO SCH (09:15)
[2018-02-14] MEDS: SODIUM CHLORIDE 0.9% 1,000 ML IV SCH (09:16)
[2018-02-14] MEDS: APIXABAN 5 MG TAB PO SCH ×2 (09:16→20:55)
--- NOTE | 2018-02-14 12:44 | P.PN ---
Subjective Patient still has a headache. A bit nauseous but he was not given nausea medications because he is on Tikosyn Once of healed well. I removed sutures. No hematoma no bleeding Blood pressure 109/67 mmHg pulse rate in the 70s, afebrile 97.1F Breath sounds are clear no rhonchi no crackles Heart sounds are normal normal S1 normal S2 Extremities are warm no edema Twelve-lead ECG was reviewed and it shows QT interval absolute of less than 420 ms No ventricular arrhythmias Labs reviewed potassium 4.7 magnesium 2.1 BUN 21 creatinine 1.01 I had a very detailed discussion with his and the patient did a full dofetilide education was provided by me. Impression persistent atrial fibrillation, symptomatic Patient admitted for management of persistent atrial fibrillation and initiation of dofetilide as an inpatient After 2 doses of dofetilide converted to sinus rhythm. QT interval less than 440 ms consistently, no ventricular arrhythmias Later developed typical atrial flutter with RVR, symptomatic, on dofetilide Status post atrial flutter ablation yesterday Failed in sinus rhythm now Suggest I will hold his discharge today since he's been complaining of a headache that is persistent. He thinks it happens after anesthesia. I would treat her dofetilide 500 g twice daily along with Slow-Mag and low-dose spironolactone ELIQUIS 5 mg twice daily Suggest Discharge planning for tomorrow Objective - Vital Signs Vital signs: Vital Signs Temp 97.1 F L 02/14/18 08:00 Pulse 72 02/14/18 12:00 Resp 16 02/14/18 04:15 BP 109/67 02/14/18 12:00 Pulse Ox 97 02/14/18 12:00 Intake & Output 02/13/18 02/14/18 02/14/18 18:59 06:59 18:59 Intake Total 1179 370 240 Output Total 600 Balance 1179 370 -360 Weight 81.6 kg Intake: IV 1179 10 0.9 10 Oral 360 240 Output: Urine 600 Other: Voiding Method Toilet # Voids 1 2 # Bowel Movements 1 - Labs CBC & Chem 7: 02/09/18 14:54 02/14/18 07:01 Labs: Abnormal Lab Results - Last 24 Hours (Table) 02/14/18 Range/Units 07:01 BUN 21 H (9-20) mg/dL
[2018-02-15] MEDS: HYDROcodone/APAP 5-325MG 1 EACH TAB PO PRN (04:48)
[2018-02-15 05:40] VITALS: RESP 16
[2018-02-15] MEDS: DOFETILIDE 500 MCG CAP PO SCH (06:13)
[2018-02-15 07:40] LABS: Anion Gap 6 mmol/L; Blood Urea Nitrogen 16 mg/dL (9-20); Calcium 9.2 mg/dL (8.4-10.2); Carbon Dioxide 28 mmol/L (22-30); Chloride 106 mmol/L (98-107); Glucose 96 mg/dL (74-99); Magnesium 2.1 mg/dL (1.6-2.3); Potassium 4.4 mmol/L (3.5-5.1); Sodium 140 mmol/L (137-145)
[2018-02-15] MEDS: SPIRONOLACTONE 25 MG TAB PO SCH (08:44)
[2018-02-15] MEDS: APIXABAN 5 MG TAB PO SCH (08:44)
[2018-02-15] MEDS: SODIUM CHLORIDE 0.9% 1,000 ML IV SCH (08:45)
[2018-02-15 08:52] VITALS: BP 109/65; PULSE 76; TEMP 99
--- NOTE | 2018-02-15 10:01 | P.DS ---
Providers Date of admission: 02/09/18 14:05 Attending physician: Stanton Galvin Primary care physician: [facility] Course: Patient is doing well. No chest discomfort dizziness lightheadedness. His headache is much better today his vitals are stable Blood pressure 109/65 mmHg normal respirations pulse rate in the 60s and 70s 99 F Breath sounds are clear no rhonchi no crackles Heart sounds S1 and S2 are normal no murmurs or gallops no rub Abdomen soft nontender Extremities warm no edema Groin is healed well no hematoma Impression Symptomatic persistent atrial fibrillation Dofetilide initiation in the hospital Chemical conversion after the second dose of dofetilide 500 g QT interval consistently less than 440 ms Breakthrough atrial flutter, typical on dofetilide Successful atrial flutter ablation with bidirectional block and split potentials of 95-100 ms Plan Discharge home today on dofetilide 500 g twice daily, Aldactone 12.5 g by mouth daily and Slow-Mag Continue ELIQUIS Follow-up with Dr. Duarte in 2 weeks Patient Condition at Discharge: Stable Plan - Discharge Summary New Discharge Prescriptions: New Dofetilide [Tikosyn] 500 mcg PO Q12HR #180 cap Magnesium Chloride [Mag64] 64 mg PO DAILY #90 tablet. Spironolactone [Aldactone] 12.5 mg PO DAILY #90 tablet Discontinued Garlic 1 each PO DAILY [place]-3 Fatty Acids [[place]-3] 1,000 mg PO DAILY No Action hydrOXYzine HCL [Atarax] 10 mg PO TID PRN PRN Reason: Itching Cyclobenzaprine [Flexeril] 5 - 10 mg PO TID PRN PRN Reason: Pain Apixaban [Eliquis] 5 mg PO BID HYDROcodone/APAP 7.5-325MG [[place] 7.5-325] 1 tab PO Q8H PRN PRN Reason: Pain Multivit-Min/FA/Lycopen/Lutein [Centrum Silver Men Tablet] 1 tab PO DAILY Acetaminophen [Tylenol Extra Strength] 1,000 mg PO Q6H PRN PRN Reason: Pain Clindamycin Gel [Clindamycin Phosphate] 1 applic TOPICAL BID Discharge Medication List Cyclobenzaprine [Flexeril] 5 - 10 mg PO TID PRN 06/30/17 [History] hydrOXYzine HCL [Atarax] 10 mg PO TID PRN 06/30/17 [History] Apixaban [Eliquis] 5 mg PO BID 10/12/17 [History] HYDROcodone/APAP 7.5-325MG [[place] 7.5-325] 1 tab PO Q8H PRN 12/15/17 [History] Multivit-Min/FA/Lycopen/Lutein [Centrum Silver Men Tablet] 1 tab PO DAILY [History] Acetaminophen [Tylenol Extra Strength] 1,000 mg PO Q6H PRN 02/09/18 [History] Clindamycin Gel [Clindamycin Phosphate] 1 applic TOPICAL BID 02/09/18 [History] Dofetilide [Tikosyn] 500 mcg PO Q12HR #180 cap 02/14/18 [Rx] Magnesium Chloride [Mag64] 64 mg PO DAILY #90 tablet. 02/14/18 [Rx] Spironolactone [Aldactone] 12.5 mg PO DAILY #90 tablet 02/14/18 [Rx] Follow up Appointment(s)/Referral(s): Stanton Galvin MD [STAFF PHYSICIAN] - 02/21/18 2:15 pm Patient Instructions/Handouts: Dofetilide (By mouth), Atrial Flutter (DC), Cardiac Ablation (DC) Activity/Diet/Wound Care/Special Instructions: Dofetilide education provided by Dr. Duarte Discharge Disposition: HOME SELF-CARE
== END 2018-02-15 11:11 | disposition home or self-care (01) | DRG 274 ==
LOC: 6SEL 14:05
PROVIDERS: ADMIT Internal Medicine Clinical Cardiac Electrophysiology; ATTEND Internal Medicine Clinical Cardiac Electrophysiology
PROC: 02583ZZ Destruction of Conduction Mechanism, Percutaneous Approach (ICD-10-PCS; principal; 2018-02-09)
PROC: 02K83ZZ Map Conduction Mechanism, Percutaneous Approach (ICD-10-PCS; 2018-02-09)
PROC: 4A023FZ Measurement of Cardiac Rhythm, Percutaneous Approach (ICD-10-PCS; 2018-02-09)
PROC: 4A0234Z Measurement of Cardiac Electrical Activity, Percutaneous Approach (ICD-10-PCS; 2018-02-09)
PROC: 5A2204Z Restoration of Cardiac Rhythm, Single (ICD-10-PCS; 2018-02-09)
DX: I48.1 Persistent atrial fibrillation (principal); I48.3 Typical atrial flutter; E87.5 Hyperkalemia; Z79.01 Long term (current) use of anticoagulants; Z79.899 Other long term (current) drug therapy; Z87.891 Personal history of nicotine dependence; Z82.49 Family history of ischemic heart disease and other diseases of the circulatory system
CPT/HCPCS: 80048; 83735; 84443; 85025; 93613; 93653; 93662

== ENCOUNTER → 2018-03-31 | Outpatient (CLI) | payer BC ==
[2018-03-31 12:37] LABS: Basophils % (A) 0 %; Eosinophils # (A) 0.1 k/uL (0-0.7); Eosinophils % (A) 2 %; HCT 47.9 % (39.0-53.0); HGB 15.3 gm/dL (13.0-17.5); Lymphocytes # (A) 1.2 k/uL (1.0-4.8); Lymphocytes % (A) 18 %; MCH 30.9 pg (25.0-35.0); MCV 96.3 fL (80.0-100.0); Mean Platelet Volume 6.6; Monocytes # (A) 0.4 k/uL (0-1.0); Monocytes % (A) 6 %; Neutrophils # (A) 4.6 k/uL (1.3-7.7); Neutrophils % (A) 72 %; Platelet Count 220 k/uL (150-450); RBC 4.97 m/uL (4.30-5.90); RDW 12.6 % (11.5-15.5); WBC 6.4 k/uL (3.8-10.6)
[2018-03-31 22:50] LABS: Albumin 4.5 g/dL (3.80-4.90); Albumin/Globulin Ratio 2.5 (1.20-2.10); Anion Gap 3.9 mmol/L (4.00-12.00); Calcium 9.3 mg/dL (8.7-10.3); Carbon Dioxide 28.1 mmol/L (21.6-31.8); Globulin 1.8 g/dL (2.1-3.7); LDL Cholesterol,Calculated 121.6 mg/dL (0.0-131.0); Magnesium 2.2 mg/dL (1.5-2.4); Potassium 4.6 mmol/L (3.5-5.5); Total Bilirubin 0.6 mg/dL (0.3-1.2); Total Protein 6.3 g/dL (6.2-8.2); VLDL Calculation 34.4 mg/dL (5.00-40.00)
[2018-03-31 22:58] LABS: Prostate Specific Antigen 1.5 ng/mL (0.0-4.5); T4, Free (Free Thyroxine) 1.2 ng/dL (0.80-1.80)
== END ==
LOC: LABWHC1 11:58
PROVIDERS: ATTEND Nurse Practitioner Adult Health
DX: I48.1 Persistent atrial fibrillation (principal); Z51.81 Encounter for therapeutic drug level monitoring
CPT/HCPCS: 36415; 80053; 80061; 83735; 84153; 84439; 84443; 85025

== ENCOUNTER → 2018-09-08 | Outpatient (CLI) | payer BC ==
[2018-09-08 17:02] LABS: Anion Gap 5.2 mmol/L (4.00-12.00); Calcium 9.6 mg/dL (8.7-10.3); Carbon Dioxide 24.8 mmol/L (21.6-31.8); Magnesium 2.1 mg/dL (1.5-2.4); Potassium 4.4 mmol/L (3.5-5.5)
== END | disposition home or self-care (01) ==
LOC: LABWHC1 09:51
PROVIDERS: ATTEND Family Medicine
DX: I10 Essential (primary) hypertension (principal); N42.9 Disorder of prostate, unspecified
CPT/HCPCS: 36415; 80048; 83735; 84153

== ENCOUNTER → 2018-11-30 | Outpatient (CLI) | payer BC ==
[2018-11-30 11:28] LABS: Basophils % (A) 1 %; Eosinophils # (A) 0.1 k/uL (0-0.7); Eosinophils % (A) 2 %; HGB 14.9 gm/dL (13.0-17.5); Lymphocytes # (A) 1.4 k/uL (1.0-4.8); Lymphocytes % (A) 22 %; MCH 30.7 pg (25.0-35.0); MCHC 33.2 g/dL (31.0-37.0); MCV 92.4 fL (80.0-100.0); Mean Platelet Volume 7.6; Monocytes # (A) 0.5 k/uL (0-1.0); Monocytes % (A) 7 %; Neutrophils # (A) 4.4 k/uL (1.3-7.7); Neutrophils % (A) 66 %; Platelet Count 224 k/uL (150-450); RBC 4.87 m/uL (4.30-5.90); WBC 6.6 k/uL (3.8-10.6)
[2018-11-30 12:27] LABS: Erythrocyte Sedimentation Rate 7 mm/hr (0-15)
[2018-11-30 16:12] LABS: ALT 36 U/L (10-49); AST 30 U/L (14-35); African American GFR (CKD) 92.4 (60.0-200.0); Albumin/Globulin Ratio 2.44 (1.60-3.17); Alkaline Phosphatase 81 U/L (41-126); C Reactive Protein <0.4 mg/dL (0.0-0.8); Calcium 9.4 mg/dL (8.7-10.3); Carbon Dioxide 25.6 mmol/L (21.6-31.8); Chloride 111 mmol/L (96-109); Creatine Kinase 173 U/L (35-257); Globulin 1.8 g/dL (1.6-3.3); Glucose 94 mg/dL (70-110); Potassium 4.3 mmol/L (3.5-5.5); Sodium 140 mmol/L (135-145); Total Bilirubin 0.4 mg/dL (0.3-1.2); Total Protein 6.2 g/dL (6.2-8.2)
[2018-12-01 11:22] LABS: HLA B27 NEGATIVE
== END | disposition home or self-care (01) ==
LOC: LABWHC1 10:46
PROVIDERS: ATTEND Family Medicine
DX: N42.9 Disorder of prostate, unspecified (principal); M12.9 Arthropathy, unspecified; L73.9 Follicular disorder, unspecified; G89.4 Chronic pain syndrome; Z79.891 Long term (current) use of opiate analgesic
CPT/HCPCS: 36415; 80053; 82550; 84153; 85025; 85652; 86038; 86140; 86812

== ENCOUNTER → 2019-03-09 | Outpatient (CLI) | payer BC ==
[2019-03-09 16:48] LABS: African American GFR (CKD) 92.4 (60.0-200.0); Anion Gap 6.4 mmol/L (4.00-12.00); Calcium 9.8 mg/dL (8.7-10.3); Carbon Dioxide 27.6 mmol/L (21.6-31.8); Magnesium 2.2 mg/dL (1.5-2.4); Potassium 4.4 mmol/L (3.5-5.5)
== END | disposition home or self-care (01) ==
LOC: LABWHC1 10:13
PROVIDERS: ATTEND Nurse Practitioner Adult Health
DX: I10 Essential (primary) hypertension (principal)
CPT/HCPCS: 36415; 80048; 83735

== ENCOUNTER → 2020-01-28 | Outpatient (CLI) | payer BC ==
--- NOTE | 2020-01-29 05:33 | MR ---
EXAMINATION TYPE: MR lumbar spine wo con DATE OF EXAM: 01/28/2020 COMPARISON: None HISTORY: 64-year-old male Disc degeneration of the lumbo-sacral region, pain, no injury TECHNIQUE: Multiplanar, multisequence images of the lumbar spine were acquired. FINDINGS: Vertebral body heights are preserved and alignment is maintained. There is variable mild intervertebral disc desiccation. Minimal disc bulging at multiple levels. No suspicious bone marrow replacement. Some facet arthropathy in the lower lumbar spine. Vertebral body heights are preserved and alignment is maintained. Conus medullaris is normal. No large focal disc herniation or spinal canal stenosis. On the left at L5-S1, there is a 9 mm synovial cyst projecting anteriorly and laterally from the left facet joint. This closely approaches but does not clearly abut the exiting left L5 nerve root. No significant neural foraminal stenosis seen. No prevertebral or paravertebral soft tissue abnormality. IMPRESSION: 1. Facet arthropathy lower lumbar spine. At L5-S1, there is a 9 mm synovial cyst projecting anteriorl y and laterally from the left facet joint. This closely approaches but does not clearly abut the exit ing left L5 nerve root. 2. Scattered mild degenerative disc disease. No focal disc herniation or spinal canal stenosis. No si gnificant neural foraminal stenosis seen.
== END | disposition home or self-care (01) ==
LOC: RADMRIMAIN 13:23
PROVIDERS: ATTEND Family Medicine
DX: M51.36 Other intervertebral disc degeneration, lumbar region (principal); M47.816 Spondylosis without myelopathy or radiculopathy, lumbar region; M71.38 Other bursal cyst, other site
CPT/HCPCS: 72148

== ENCOUNTER → 2020-02-26 | Outpatient (CLI) | payer BC ==
--- NOTE | 2020-02-26 18:49 | MR ---
MRI CERVICAL SPINE: CLINICAL HISTORY: Chronic neck pain causing bilateral arm pain for years per patient. TECHNIQUE: Multiplanar, multisequence imaging of the cervical spine is performed without IV contrast . COMPARISON: None. FINDINGS: Coronal images show levoconvex scoliotic curvature centered in upper thoracic spine. Sagitt al images of the cervical spine show the craniocervical junction to appear within normal limits. The cervical and upper thoracic spinal cord is normal in course, caliber, and signal. There is grade 1 r etrolisthesis C6 on C7. The vertebral body heights are normal. Mild disc space narrowing C5-C6 level . Mild to moderate disc space narrowing C6-C7 level. The bone marrow signal intensity is within norm al limits. Axial images show the C2-C3 level to appear within normal limits. Axial images at C3-C4 level shows central disc protrusion mildly effacing the anterior thecal sac wit h bilateral uncovertebral facet degenerative changes causing mild left-sided neural foraminal narrowi ng. Axial images at C4-C5 level show uncovertebral facet degenerative changes bilaterally, there is right paracentral disc protrusion mildly effacing the anterior thecal sac. Bilateral neural foramina are p atent. Axial images at C5-C6 level broad-based right paracentral disc protrusion effacing the anterior theca l sac nearly abuts the ventral surface of spinal cord and causing [id number] right-sided neural foraminal narrowing. Axial images at C6-C7 level shows broad-based posterior disc protrusion effacing the anterior thecal sac and causing moderate to advanced left-sided neural foraminal narrowing, there is [id number] right-sided neural foraminal narrowing noted. Axial images at C7-T1 level are within normal limits. IMPRESSION: Multilevel degenerative changes greatest at C6-C7 level as detailed above.
== END | disposition home or self-care (01) ==
LOC: RADMRIMAIN 16:21
PROVIDERS: ATTEND Family Medicine
DX: M47.22 Other spondylosis with radiculopathy, cervical region (principal)
CPT/HCPCS: 72141

== ENCOUNTER → 2021-07-05 | Outpatient (CLI) | payer MEDICARE ==
--- NOTE | 2021-07-05 10:57 | MM ---
Reason for exam: clinical finding. Indicated problem(s): palpable abnormality in the right breast. Physical Findings: Nurse Summary: 1 x 2cm nodule in the right breast at the nipple (nurse ts). MG Diagnostic Mammo w CAD ARY Bilateral CC and MLO view(s) were taken. The breast tissue is heterogeneously dense. This may lower the sensitivity of mammography. Moderate flame shaped subareolar density on the right, mild on the left. Findings suggest benign asymmetric gynecomastia. These results were verbally communicated with the patient and result sheet given to the patient on 07/05/21. ASSESSMENT: Incomplete: need additional imaging evaluation, BI-RAD 0 RECOMMENDATION: Ultrasound of the right breast.
--- NOTE | 2021-07-05 10:59 | USB ---
Reason for exam: additional evaluation requested from abnormal screening. US Breast RT Right complete breast ultrasound includes all four quadrants, the retroareolar region and axilla. Finding demonstrates a 2.6 x 0.9 x 2.1cm hypoechoic lesion at the posterior nipple, compatible with gynecomastia. Minimal similar change on the left measuring 1.6 x 0.6cm. Scanned zone Z four quadrants and subareolar region. These results were verbally communicated with the patient and result sheet given to the patient on 07/05/21. ASSESSMENT: Benign, BI-RAD 2 RECOMMENDATION: Clinical management of both breasts. Manage on a clinical basis with regard to causes of gynecomastia.
== END | disposition home or self-care (01) ==
LOC: RADMAMWWP 07:34
PROVIDERS: ATTEND Family Medicine
DX: N64.4 Mastodynia (principal)
CPT/HCPCS: 77066

== ENCOUNTER → 2021-11-17 | Outpatient (CLI) | payer MEDICARE ==
--- NOTE | 2021-11-17 09:00 | US ---
EXAMINATION TYPE: US abdomen complete DATE OF EXAM: 11/17/2021 COMPARISON: NONE CLINICAL HISTORY: R19.7 DIARRHEA,R14.0 GASEOUS,R10.84 ABN PAIN. Abdomen pain, diarrhea, and bloating x 1 month EXAM MEASUREMENTS: Liver Length: 16.0 cm Gallbladder Wall: 0.3 cm CBD: 0.4 cm Spleen: 9.6 cm Right Kidney: 10.5 x 4.8 x 4.9 cm Left Kidney: 9.9 x 5.6 x 5.0 cm Pancreas: obscured by overlying midline bowel gas Liver: scanned intercostally, appears wnl Gallbladder: hydropic, sludge, wall borderline thickened Evidence for sonographic Blanca's sign: no CBD: visualized portions wnl, limited by overlying midline bowel gas Spleen: wnl Right Kidney: wnl Left Kidney: wnl Upper IVC: wnl Abd Aorta: wnl The liver is homogenous. The intrahepatic portion of the IVC and proximal abdominal aorta are within normal limits. Common bile duct is unremarkable. The visualized portions of the pancreas are homo genous. The spleen is unremarkable. Kidneys are symmetric and free of hydronephrosis. No renal les ions are seen. IMPRESSION: The gallbladder is hydropic at 10.1 cm in greatest dimension with borderline wall thickening and gall bladder sludge.
== END | disposition home or self-care (01) ==
LOC: RADUSWWP 08:04
PROVIDERS: ATTEND Family Medicine
DX: K82.8 Other specified diseases of gallbladder (principal)
CPT/HCPCS: 76700

== ENCOUNTER 2022-09-20 07:29 | Day surgery (SDC) | payer MEDICARE ==
[2022-09-14 11:38] VITALS: BMI 26.4
[~2022-09-20 07:29] MED LIST changes: +ALPRAZolam 0.25 MG TAB PO PRN; +ALPRAZolam 0.5 MG TAB PO PRN; +ASPIRIN 325 MG TAB PO ONE; -LACTATED RINGERS 1,000 ML IV SCH; -LIDOCAINE 1% 20 ML VIAL (10MG/ML) FOR IV START INTRADERMA PRN; +NITROGLYCERIN SL TABS 0.4 MG TAB SUBLINGUAL PRN; -SODIUM CHLORIDE 0.9% 1,000 ML IV SCH
[2022-09-20] MEDS: SODIUM CHLORIDE 0.9% 1,000 ML in EMPTY BAG 1 BAG IV SCH ×3 (07:42→22:29)
[2022-09-20 08:00] LABS: Basophils % (A) 0 %; Eosinophils # (A) 0.1 k/uL (0-0.7); Eosinophils % (A) 2 %; HCT 44.5 % (39.0-53.0); HGB 15.5 gm/dL (13.0-17.5); Lymphocytes # (A) 1.4 k/uL (1.0-4.8); Lymphocytes % (A) 24 %; MCH 31.9 pg (25.0-35.0); MCHC 34.8 g/dL (31.0-37.0); MCV 91.7 fL (80.0-100.0); Mean Platelet Volume 7.8; Monocytes # (A) 0.4 k/uL (0-1.0); Monocytes % (A) 8 %; Neutrophils # (A) 3.6 k/uL (1.3-7.7); Neutrophils % (A) 63 %; Platelet Count 192 k/uL (150-450); RBC 4.85 m/uL (4.30-5.90); RDW 12.6 % (11.5-15.5); WBC 5.7 k/uL (3.8-10.6)
[2022-09-20 08:10] LABS: African American GFR (CKD) >90 (>60 ml/min/1.73 sqM); Anion Gap 6 mmol/L; Blood Urea Nitrogen 19 mg/dL (9-20); Calcium 9.6 mg/dL (8.4-10.2); Carbon Dioxide 28 mmol/L (22-30); Chloride 106 mmol/L (98-107); Glucose 98 mg/dL (74-99); Non-African American GFR(CKD) 89 (>60 ml/min/1.73 sqM); Potassium 4.4 mmol/L (3.5-5.1); Sodium 140 mmol/L (137-145)
[2022-09-20] MEDS ORDERED: HEPARIN SODIUM 1,000 UN/ML (10ML VL) ONE (08:58)
[2022-09-20] MEDS ORDERED: VERAPAMIL 2.5 MG/ML 2 ML AMP ONE (08:58)
[2022-09-20] MEDS ORDERED: MIDAZOLAM 2 MG/2 ML VIAL IV ONE (09:08)
[2022-09-20] MEDS ORDERED: LIDOCAINE 1% INJ 10MG/ML (5 ML VIAL-PF) SQ ONE (09:11)
[2022-09-20] MEDS ORDERED: VERAPAMIL SYRINGE (5 MG/10 ML) INTRAARTER ONE (09:12)
[2022-09-20] MEDS: HEPARIN SODIUM 1,000 UN/ML (10ML VL) IVP ONE ×2 (09:15→09:52)
[2022-09-20] MEDS ORDERED: CLOPIDOGREL 75 MG TAB ONE ×2 (09:32→09:34)
[2022-09-20] MEDS ORDERED: CLOPIDOGREL 75 MG TAB PO ONE (09:36)
[2022-09-20] MEDS ORDERED: MIDAZOLAM 2 MG/2 ML VIAL IVP ONE (09:40)
[2022-09-20] MEDS ORDERED: IOPAMIDOL-370 100ML BTL INJ ONE ×2 (09:47→09:48)
[2022-09-20] MEDS ORDERED: ACETAMINOPHEN TAB 500 MG TAB PO PRN (10:04)
[2022-09-20] MEDS ORDERED: HYDROcodone/APAP 7.5-325MG 1 EACH TAB PO PRN (10:04)
[2022-09-20] MEDS ORDERED: hydrOXYzine HCL 10 MG TAB PO PRN (10:04)
[2022-09-20] MEDS ORDERED: ATROPINE SULFATE 0.1 MG/ML 10ML SYRINGE IV PRN (10:05)
[2022-09-20] MEDS ORDERED: NITROGLYCERIN SL TABS 0.4 MG TAB SUBLINGUAL PRN (10:05)
[2022-09-20] MEDS ORDERED: ZOLPIDEM 5 MG TAB PO PRN (10:05)
[2022-09-20] MEDS ORDERED: MAG HYDROX/AL HYDROX/SIMETH 30 ML CUP PO PRN (10:05)
[2022-09-20] MEDS ORDERED: RX INFO: IV CONTRAST WAS GIVEN 1 EACH MISC MISCELLANE PRN (10:05)
[2022-09-20] MEDS ORDERED: SODIUM CHLORIDE 0.9% 1,000 ML in EMPTY BAG 1 BAG IV SCH (10:15)
--- NOTE | 2022-09-20 10:16 | P.PCN ---
Date of Procedure: 09/20/22 Operative Findings: PERCUTANEOUS CORONARY INTERVENTION Performing physician Gerard Campo M.D. Procedure Performed: 1. Successful stenting of the mid LAD using 2.75 x 18 mm Xience drug-eluting stent with an excellent angiographic results with adjunctive use of FFR and IVUS 2. FFR of the right coronary artery 3. Selective right and left coronary angiogram Indication: This is a 67-year-old gentleman who sees Dr. Galvin regularly who was diagnosed with cardiomyopathy. He underwent myocardial perfusion imaging stress test and that came in to be abnormal. Subsequently a heart catheterization was performed and revealed intermediate two-vessel CAD involving the RCA and LAD. He was brought today for FFR. Approach: Right radial artery Complications: None Level of Sedation: Moderate with a sedation length of 37 minutes Procedure Discussion: After obtaining an informed consent the patient was brought to the cardiac ear mold laboratory technician. The right radial artery was cannulated using micropuncture technique, the micropuncture wire passed easily then I placed 6-[place] sheath. I gave the patient 2 mg of verapamil intra-arterial and 6000 as of heparin intravenous. A CT monitoring was performed throughout the procedure. Subsequently after zeroing the Doppler wire and equalizing between the Doppler wire and the guiding catheter which was JR4 guiding catheter we did an FFR of the RCA and that came in to be nonischemic. That came in to be an 0.92. After that I did equalizing between the Doppler wire and the guiding catheter which was JL 3.5 guiding catheter then the left main was engaged and then I did wire the LAD using the Doppler wire. We did iFR and that came in to be ischemic at 0.88. I did balloon angioplasty using 2.5 mm balloon before I deployed 2.75 mm x 18 mm stent where the stent was positioned under fluoroscopy guidance and deployed under fluoroscopy guidance. Before the angioplasty I did intravascular ultrasound of the LAD and that showed a diameter around 2.5-3 mm. The procedure was completed with no complication. Postprocedure Management: 1. Dual antiplatelet therapy using aspirin and Plavix for at least 6 months 2. Aggressive cholesterol control 3. Risk factors modification
[2022-09-20] MEDS: carvediloL 6.25 MG TAB PO SCH (17:57)
[2022-09-20] MEDS: DOCUSATE 100 MG CAP PO SCH (19:43)
[2022-09-20] MEDS: DOFETILIDE 500 MCG CAP PO SCH (19:43)
[2022-09-20] MEDS ORDERED: ATORVASTATIN 80 MG TAB PO SCH (21:00)
[2022-09-21] MEDS: carvediloL 6.25 MG TAB PO SCH (08:14)
[2022-09-21] MEDS: DOCUSATE 100 MG CAP PO SCH (08:14)
[2022-09-21 08:15] VITALS: BP 115/67; PULSE 65; RESP 16; TEMP 97.9
[2022-09-21 08:18] LABS: African American GFR (CKD) >90 (>60 ml/min/1.73 sqM); Non-African American GFR(CKD) 90 (>60 ml/min/1.73 sqM)
[2022-09-21] MEDS: DOFETILIDE 500 MCG CAP PO SCH (08:39)
[2022-09-21] MEDS ORDERED: ASPIRIN 81 MG PO SCH (09:00)
[2022-09-21] MEDS ORDERED: APIXABAN 2.5 MG TABLET PO SCH (09:00)
[2022-09-21] MEDS ORDERED: MULTIVITAMINS, THERA 1 EACH TAB PO SCH (09:00)
[2022-09-21] MEDS ORDERED: SPIRONOLACTONE 25 MG TAB PO SCH (09:00)
[2022-09-21] MEDS ORDERED: ASCORBIC ACID 500 MG TAB PO SCH (09:00)
[2022-09-21] MEDS ORDERED: CHOLECALCIFEROL 25 MCG (1000 IU) TABLET PO SCH (09:00)
[2022-09-21] MEDS ORDERED: MAGNESIUM OXIDE 400 MG TAB PO SCH (09:00)
[2022-09-21] MEDS ORDERED: CLOPIDOGREL 75 MG TAB PO SCH (09:00)
[2022-09-21] MEDS ORDERED: UBIQUINOL 100 MG PO SCH (09:00)
--- NOTE | 2022-09-21 10:14 | P.DS ---
Providers Attending physician: Gerard Campo Consults: 09/20/22 10:05 Consult Physician Routine Consulting Provider: [facility] Consult Reason/Comments: Post Interventional patient Do you want consulting provider notified?: Already Contacted Primary care physician: Bl[facility] [address] Course: This is a 67-year-old male who follows in the office with Dr. Galvin. Patient was recently diagnosed with cardiomyopathy. He underwent myocardial perfusion imaging stress test that was abnormal. He underwent cardiac catheterization that revealed intermediate to vessels coronary artery disease involving the RCA and LAD. He underwent FFR of RCA yesterday which came in at 0.92 which is nonischemic. He then did iFR of LAD which was noted to be ischemic at 0.88. He underwent stenting of the mid LAD with a drug-eluting stent. Patient examined this point bedside. He is doing well with no immediate complications. He denies chest pain or pressure. He denies shortness of breath. He was deemed stable for discharge home today per Dr. Campo. Per Dr. Campo, patient is to be discharged on aspirin 81 mg, Plavix 75 mg daily, and decreased dose of ELiquis (now 2.5mg BID). Patient to follow up in the office post discharge Discharge diagnosis Coronary artery disease, status post stenting of the mid LAD Nurse practitioner note has been reviewed by physician. Signing provider agrees with the documented findings, assessment, and plan of care. Plan - Discharge Summary Discharge Rx Participant: No New Discharge Prescriptions: New Apixaban [Eliquis] 2.5 mg PO BID #60 tab Aspirin 81 mg PO DAILY #30 tab Clopidogrel [Plavix] 75 mg PO DAILY #90 tab Discontinued Apixaban [Eliquis] 5 mg PO BID No Action hydrOXYzine HCL [Atarax] 10 mg PO TID PRN PRN Reason: Itching Cyclobenzaprine [Flexeril] 5 - 10 mg PO TID PRN PRN Reason: Pain HYDROcodone/APAP 7.5-325MG [[place] 7.5-325] 1 tab PO Q8H PRN PRN Reason: Pain Multivit-Min/FA/Lycopen/Lutein [Centrum Silver Men Tablet] 1 tab PO DAILY Acetaminophen [Tylenol Extra Strength] 1,000 mg PO Q6H PRN PRN Reason: Pain Dofetilide [Tikosyn] 500 mcg PO Q12HR #180 cap Spironolactone [Aldactone] 12.5 mg PO DAILY #90 tablet Magnesium Oxide [Magnesium] 500 mg PO DAILY carvediloL [Coreg] 6.25 mg PO BID Docusate [Colace] 100 mg PO BID Cholecalciferol [Vitamin D3 (25 Mcg = 1000 Iu)] 50 mcg PO DAILY Ubiquinol [Coqmax Ubiquinol] 100 mg PO DAILY Ascorbic Acid [Vitamin C] 1,000 mg PO DAILY Discharge Medication List Cyclobenzaprine [Flexeril] 5 - 10 mg PO TID PRN 06/30/17 [History] hydrOXYzine HCL [Atarax] 10 mg PO TID PRN 06/30/17 [History] HYDROcodone/APAP 7.5-325MG [[place] 7.5-325] 1 tab PO Q8H PRN 12/15/17 [History] Multivit-Min/FA/Lycopen/Lutein [Centrum Silver Men Tablet] 1 tab PO DAILY 12/18/17 [History] Acetaminophen [Tylenol Extra Strength] 1,000 mg PO Q6H PRN 02/09/18 [History] Dofetilide [Tikosyn] 500 mcg PO Q12HR #180 cap 02/14/18 [Rx] Spironolactone [Aldactone] 12.5 mg PO DAILY #90 tablet 02/14/18 [Rx] Ascorbic Acid [Vitamin C] 1,000 mg PO DAILY 09/14/22 [History] Cholecalciferol [Vitamin D3 (25 Mcg = 1000 Iu)] 50 mcg PO DAILY 09/14/22 [History] Docusate [Colace] 100 mg PO BID 09/14/22 [History] Magnesium Oxide [Magnesium] 500 mg PO DAILY 09/14/22 [History] Ubiquinol [Coqmax Ubiquinol] 100 mg PO DAILY 09/14/22 [History] carvediloL [Coreg] 6.25 mg PO BID 09/14/22 [History] Apixaban [Eliquis] 2.5 mg PO BID #60 tab 09/21/22 [Rx] Aspirin 81 mg PO DAILY #30 tab 09/21/22 [Rx] Clopidogrel [Plavix] 75 mg PO DAILY #90 tab 09/21/22 [Rx] Follow up Appointment(s)/Referral(s): Gerard Campo MD [STAFF PHYSICIAN] - 09/29/22 10:00 am (Appt on September 29 is with HARRISON Rivera @ main office. This will take place of appt that was on October 04.) Patient Instructions/Handouts: Moderate Sedation (DC), After Radial Heart Catheterization (GEN) Activity/Diet/Wound Care/Special Instructions: *NO LIFTING, PUSHING, OR PULLING ANYTHING OVER 5 POUNDS FOR 5 DAYS *NO DRIVING FOR 3 DAYS *YOU CAN REMOVE YOUR DRESSING AND SHOWER TOMORROW BUT DO NOT SUBMERSE YOUR PUNCTURE SITE IN WATER FOR A FEW DAYS TO PREVENT INFECTION - SO NO TUB BATHS, POOLS, HOT TUBS, DISHES...ETC *ANY SIGNS OF BLEEDING (HARDNESS, SWELLING, OR EXCESSIVE BRUISING) HOLD DIRECT PRESSURE ON YOUR PUNCTURE SITE AND COME TO THE NEAREST EMERGENCY ROOM TO GET YOUR PUNCTURE SITE LOOKED AT - DO NOT DRIVE YOURSELF! EITHER CALL EMS OR HAVE SOMEONE DRIVE YOU! Discharge Disposition: HOME SELF-CARE
== END 2022-09-21 09:56 | disposition home or self-care (01) ==
LOC: CATHCVL 07:29 → 6NMEDSUR 14:14 → CATHCVL 09-21 09:56
PROVIDERS: ATTEND Internal Medicine Interventional Cardiology
DX: I25.10 Atherosclerotic heart disease of native coronary artery without angina pectoris (principal)
CPT/HCPCS: 92978; 93454; 93799; 80048; 82565; 85025; C9600; C1887 ×2; C1769 ×2; C1894; C1725; C1753; C1874; J2250; J2001; J1644; Q9967

== ENCOUNTER → 2023-08-28 | Outpatient (CLI) | payer MEDICARE ==
[2023-08-28 09:17] LABS: Basophils % (A) 1 %; Eosinophils # (A) 0.1 k/uL (0-0.7); Eosinophils % (A) 2 %; HGB 15.7 gm/dL (13.0-17.5); INR 1.1 (<1.2); Lymphocytes # (A) 1.3 k/uL (1.0-4.8); Lymphocytes % (A) 17 %; MCH 30.9 pg (25.0-35.0); MCV 96.4 fL (80.0-100.0); Monocytes # (A) 0.4 k/uL (0-1.0); Monocytes % (A) 6 %; Neutrophils # (A) 5.6 k/uL (1.3-7.7); Neutrophils % (A) 73 %; Platelet Count 231 k/uL (150-450); Prothrombin Time 11.5 sec (10.0-12.5); RBC 5.08 m/uL (4.30-5.90); RDW 12.6 % (11.5-15.5); WBC 7.6 k/uL (3.8-10.6)
[2023-08-28 09:23] LABS: African American GFR (CKD) >90 (>60 ml/min/1.73 sqM); Anion Gap 10 mmol/L; Blood Urea Nitrogen 23 mg/dL (9-20); Carbon Dioxide 24 mmol/L (22-30); Chloride 107 mmol/L (98-107); Glucose 112 mg/dL (74-99); Non-African American GFR(CKD) 85 (>60 ml/min/1.73 sqM); Potassium 4.5 mmol/L (3.5-5.1); Sodium 141 mmol/L (137-145)
== END | disposition home or self-care (01) ==
LOC: LABWHC1 08:20
PROVIDERS: ATTEND Internal Medicine
DX: Z01.812 Encounter for preprocedural laboratory examination (principal)
CPT/HCPCS: 36415; 80048; 85025; 85610